=== PATIENT | female | born 1940 | race Caucasian/White ===

== ENCOUNTER → 2016-11-08 | Outpatient (CLI) | payer MEDICARE, OTHER ==
[~2016-11-08] MED LIST: ASPI-515 PO; BIMA2.5D EACHEYE; DORZ10DR21 EACHEYE
== END | disposition home or self-care (01) ==
LOC: CFH 10:46
PROVIDERS: ATTEND Physician Assistant
DX: Z13.820 Encounter for screening for osteoporosis (principal); M81.0 Age-related osteoporosis without current pathological fracture; M85.9 Disorder of bone density and structure, unspecified
CPT/HCPCS: 77080

== ENCOUNTER → 2018-02-08 | Outpatient (CLI) | payer MEDICARE, OTHER | END | disposition home or self-care (01) | LOC: RAD 10:22 | PROVIDERS: ATTEND Orthopaedic Surgery | DX: M19.071 Primary osteoarthritis, right ankle and foot (principal); M65.871 Other synovitis and tenosynovitis, right ankle and foot; M21.611 Bunion of right foot ==

== ENCOUNTER 2019-01-08 21:46 | Emergency (ER) | payer MEDICARE, OTHER ==
[~2019-01-08] VITALS: Ht 167.6 cm; Wt 60.0 kg
--- NOTE | 2019-01-08 21:55 | NUR ---
bib remsa from home, emt stated pt's found pt on bedroom floor, pt 's eyes were open in a blank stare for brief moment, pt does not remember event, denies complaints of injury or pain, no blood thinners, gcs-15, b/p-118/76, hr-65, 95% r/a, fsbs-74, 12 lead ekg sr, pt drank 2.5 glasswes of wine officer captain. pt refusing gown, pt up to rr with standby assist, tolerated transfer well
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
[2019-01-08 22:39] LABS: BASOPHILS # (AUTO) 0.04 x10^3/uL (0-0.1); BASOPHILS % (AUTO) 1 % (0-1); EOSINOPHILS % (AUTO) 5 % (1-7); LYMPHOCYTES # (AUTO) 1.96 x10^3/uL (1-3.4); LYMPHOCYTES % (AUTO) 31 % (22-44); MD NO; MEAN CORPUSCULAR HEMOGLOBIN 31.4 pg (27.0-34.8); MEAN CORPUSCULAR VOLUME 95.2 fL (80-100); MONOCYTES # (AUTO) 0.67 x10^3/uL (0.2-0.8); MONOCYTES % (AUTO) 11 % (2-9); NEUTROPHILS % (AUTO) 53 % (42-75); PLATELET COUNT 379 x10^3/uL (130-400); RED BLOOD COUNT 4.53 x10^6/uL (3.82-5.3); RED CELL DISTRIBUTION WIDTH 14.8 % (9.6-15.2)
--- NOTE | 2019-01-08 22:48 | NUR ---
waiting for RN to call if pt is ready for CT
[2019-01-08 22:50] LABS: ANION GAP 6 mmol/L (5-15); CALCIUM 9.2 mg/dL (8.5-10.1); CHLORIDE 111 mmol/L (98-107)
--- NOTE | 2019-01-08 23:10 | NUR ---
PT TO CT
--- NOTE | 2019-01-08 23:31 | NUR ---
pt resting calmly, spouse at bedside, denies needs, monitors in place, call light within reach. awaiting ct result
[2019-01-09 00:28] VITALS: BP 120/83
== END 2019-01-09 00:36 | disposition home or self-care (01) ==
LOC: ED 22:39
DX: F10.120 Alcohol abuse with intoxication, uncomplicated (principal); W01.0XXA Fall on same level from slipping, tripping and stumbling without subsequent striking against object, initial encounter; Y93.89 Activity, other specified; Y92.091 Bathroom in other non-institutional residence as the place of occurrence of the external cause; Y99.8 Other external cause status
CPT/HCPCS: 36415; 70450; 80048; 80307; 82040; 85025; 93005; 99284